=== PATIENT | female | born 1990 | race Caucasian/White ===

== ENCOUNTER → 2016-10-07 | Outpatient (CLI) | payer OTHER ==
--- NOTE | 2016-10-07 15:25 | REP ---
Clinical: Status post trauma (do not bite) with right gluteal swelling. Technique: Real time combs scale and color Doppler evaluation using linear high frequency transducer. Findings: Ultrasound examination of the right groin demonstrates a single prominent lymph node measuring 2.0 x 0.8 x 0.9 cm. Directed ultrasound examination overlying the right gluteal region at the site of swelling demonstrates subcutaneous hypoechoic complex collection measuring 2.9 x 0.5 x 2.4 cm likely representing resolving hematoma. Impression: Suspected resolving hematoma at the site of swelling and previous trauma (dog bite). Follow-up ultrasound may be warranted if physical examination worsens. Signed by Jacob Jimenez MD 10/07/2016 03:17 P
== END ==
LOC: M RAD 14:38
DX: R59.0 Localized enlarged lymph nodes (principal); R22.2 Localized swelling, mass and lump, trunk

== ENCOUNTER → 2016-11-12 | Outpatient (REF) | payer OTHER ==
[2016-11-12 23:44] LABS: MICROSCOPIC INDICATED? MAN YES (NO)
[2016-11-13 00:04] LABS: MICROSCOPIC EXAM PERFORMED
[2016-11-13 00:05] LABS: HYALINE CAST, URINE NONE SEEN /lpf (0-1); RBC, URINE TNTC /hpf (0-3); SQUAMOUS EPITHELIAL CELL URINE SMALL AMOUNT /hpf (SMALL AMT)
[2016-11-13 00:06] LABS: BACTERIA, URINE MOD AMOUNT
== END ==
LOC: M LAB REF 15:06
PROVIDERS: ATTEND Physician Assistant
DX: R30.0 Dysuria (principal)

== ENCOUNTER → 2017-06-02 | Outpatient (CLI) | payer OTHER ==
[2017-06-02 13:33] LABS: BASO % 0.1 % (0.0-1.0); EOS # 0.1 10^3/uL (0.0-0.50); EOS % 0.7 % (0.0-3.0); HEMOGLOBIN 12.7 g/dl (12.0-16.0); IMMATURE GRANULOCYTE % 0.3 % (0-3.0); LYMPH # 1.3 10^3/uL (1.5-6.5); LYMPH % 17.3 % (24.0-44.0); MEAN CORPUSCULAR HEMOGLOBIN 30.1 pg (27.0-33.0); MEAN CORPUSCULAR HGB CONC 34.3 g/dl (32.0-36.5); MEAN CORPUSCULAR VOLUME 87.7 fl (80.0-96.0); MONO # 0.3 10^3/uL (0.0-0.8); MONO % 4.3 % (0.0-5.0); NEUTROPHILS # 5.7 10^3/uL (1.8-7.7); NEUTROPHILS % 77.3 % (36.0-66.0); PLATELET COUNT, AUTOMATED 243 10^3/uL (150-450); RED BLOOD COUNT 4.22 10^6/uL (4.00-5.40); RED CELL DISTRIBUTION WIDTH 12.1 % (11.5-14.5); WHITE BLOOD COUNT 7.4 10^3/uL (4.0-10.0)
[2017-06-02 13:57] LABS: RUBELLA IgG QUALITATIVE IMMUNE (IMMUNE)
[2017-06-02 13:58] LABS: HBsAg Prenatal NEGATIVE (NEGATIVE)
[2017-06-02 14:26] LABS: HEPATITIS C VIRUS ABY INDEX 0.1 INDEX (<0.8)
[2017-06-02 14:27] LABS: HIV 1&2 SCREEN CENTAUR NEGATIVE (NEGATIVE)
[2017-06-02 15:03] LABS: CHLAMYDIA DNA AMPLIFICATION NEGATIVE (NEGATIVE); GC DNA AMPLIFICATION NEGATIVE (NEGATIVE)
== END ==
LOC: M SMT 09:21
DX: Z34.81 Encounter for supervision of other normal pregnancy, first trimester (principal); Z3A.12 12 weeks gestation of pregnancy

== ENCOUNTER → 2017-07-03 | Outpatient (CLI) | payer OTHER | LOC: M SMT 10:09 | DX: Z36.89 Encounter for other specified antenatal screening (principal) | CPT/HCPCS: 36415 ==

== ENCOUNTER → 2017-07-17 | Outpatient (CLI) | payer OTHER | LOC: M RAD 09:13 | DX: Z34.82 Encounter for supervision of other normal pregnancy, second trimester (principal); Z36.89 Encounter for other specified antenatal screening; Z3A.18 18 weeks gestation of pregnancy | CPT/HCPCS: 76811 ==

== ENCOUNTER → 2017-08-14 | Outpatient (CLI) | payer OTHER | LOC: M RAD 08:26 | DX: Z36.9 Encounter for antenatal screening, unspecified (principal); Z3A.21 21 weeks gestation of pregnancy | CPT/HCPCS: 76816 ==

== ENCOUNTER → 2017-09-24 | Outpatient (CLI) | payer OTHER | LOC: M SMT 09:34 | DX: Z36.2 Encounter for other antenatal screening follow-up (principal); Z3A.28 28 weeks gestation of pregnancy | CPT/HCPCS: 76816 ==

== ENCOUNTER → 2017-10-27 | Outpatient (CLI) | payer OTHER ==
[2017-10-27 13:21] LABS: BASO % 0.2 % (0.0-1.0); EOS % 0.3 % (0.0-3.0); HEMOGLOBIN 11.5 g/dl (12.0-15.5); LYMPH # 1.6 10^3/uL (1.5-6.5); LYMPH % 13.6 % (24.0-44.0); MEAN CORPUSCULAR HEMOGLOBIN 30.6 pg (27.0-33.0); MEAN CORPUSCULAR HGB CONC 33.8 g/dl (32.0-36.5); MEAN CORPUSCULAR VOLUME 90.4 fl (80.0-96.0); MONO # 0.4 10^3/uL (0.0-0.8); MONO % 3.7 % (0.0-5.0); NEUTROPHILS # 9.4 10^3/uL (1.8-7.7); NEUTROPHILS % 81.2 % (36.0-66.0); PLATELET COUNT, AUTOMATED 250 10^3/uL (150-450); RED BLOOD COUNT 3.76 10^6/uL (4.00-5.40); RED CELL DISTRIBUTION WIDTH 13.2 % (11.5-14.5); WHITE BLOOD COUNT 11.6 10^3/uL (4.0-10.0)
[2017-10-27 13:39] LABS: GLUCOSE CHALLENGE TEST 1 HOUR 105 MG/DL (LESS THAN 140)
== END ==
LOC: M SMT 09:49
DX: Z36.89 Encounter for other specified antenatal screening (principal); Z3A.00 Weeks of gestation of pregnancy not specified
CPT/HCPCS: 82950

== ENCOUNTER → 2017-11-17 | Outpatient (REF) | payer OTHER | LOC: M LAB REF 11-18 17:17 | DX: Z36.85 Encounter for antenatal screening for Streptococcus B (principal); Z3A.00 Weeks of gestation of pregnancy not specified | CPT/HCPCS: 87081 ==

== ENCOUNTER 2017-12-23 15:19 | Inpatient (IN) | payer OTHER ==
[2017-12-23 17:07] LABS: HEMATOCRIT 31.8 % (36.0-47.0); HEMOGLOBIN 10.6 g/dl (12.0-15.5); MEAN CORPUSCULAR HEMOGLOBIN 29.4 pg (27.0-33.0); MEAN CORPUSCULAR HGB CONC 33.3 g/dl (32.0-36.5); MEAN CORPUSCULAR VOLUME 88.3 fl (80.0-96.0); PLATELET COUNT, AUTOMATED 219 10^3/uL (150-450); RED CELL DISTRIBUTION WIDTH 13.6 % (11.5-14.5); WHITE BLOOD COUNT 11.1 10^3/uL (4.0-10.0)
[2017-12-23] MEDS: miSOPROStol 50 MCG 1/2 TAB (S0191) SL ×2 (17:25→21:34)
[2017-12-24] MEDS: OXYTOCIN DRIP 30 UNITS in APPROPRIATE DILUENT 1 EA IV ×2 (02:13→14:15)
[2017-12-24] MEDS ORDERED: FENTANYL 2MCG/ML ROPIVACAINE 0.2% IN 0.9% NACL 200ML IVBAG As Ordered (04:50)
[2017-12-24] MEDS ORDERED: REFRIGERATOR IV KEYS XX (06:30)
[2017-12-24] MEDS ORDERED: NALOXONE INJ 0.4 MG/1 ML VIAL (J2310) IV (06:30)
[2017-12-24] MEDS ORDERED: diphenhydrAMINE INJ 50MG/ML VIAL (J1200) IV (06:30)
[2017-12-24] MEDS ORDERED: EPIDURAL/PCA KEYS XX (06:30)
[2017-12-24] MEDS ORDERED: ONDANSETRON 4MG/2ML VIAL (J2405) IV ×2 (06:30→14:15)
[2017-12-24] MEDS ORDERED: EPIDURAL COMMENT XX (06:30)
[2017-12-24] MEDS ORDERED: FENTANYL/ROPIVACAINE/NACL BAG 200 ML EPIDURAL (06:30)
[2017-12-24] MEDS: LACTATED RINGER'S 1000 ML IV (09:05)
[2017-12-24] MEDS: ePHEDrine SULFATE 25 MG/5 ML(5MG/ML) SYRINGE IV ×3 (09:25→09:34)
[2017-12-24] MEDS ORDERED: METHYLERGONOVINE MALEATE 0.2 MG TAB PO (14:15)
[2017-12-24] MEDS ORDERED: ACETAMINOPHEN 500 MG TAB PO (14:15)
[2017-12-24] MEDS: IBUPROFEN 800 MG TAB PO ×2 (15:56→23:41)
[2017-12-24] MEDS: DIBUCAINE 1% OINTMENT 30GM TOP (18:53)
[2017-12-25] MEDS: MEASLES,MUMPS,RUBELLA VACCINE INJ (MMR-II) (90707) SC (07:21)
[2017-12-25] MEDS: RHOGAM 300 MCG (1500 IU) INJ (J2790) IM (07:21)
[2017-12-25] MEDS: PRENATAL VITAMINS CHEWABLE TABLET PO ×2 (09:00→09:03)
[2017-12-25] MEDS: IBUPROFEN 800 MG TAB PO ×2 (09:04→19:37)
[2017-12-25] MEDS: INFLUENZA QUADRIVALENT PF VACCINE 0.5ML SYRINGE (90686) IM (09:05)
[2017-12-25] MEDS: DOCUSATE SODIUM 100 MG CAP PO ×2 (09:29→19:35)
[2017-12-25] MEDS: SIMETHICONE 80 MG CHEW TAB PO (14:07)
[2017-12-25 14:34] LABS: BASO % 0.1 % (0.0-1.0); EOS # 0.1 10^3/uL (0.0-0.50); EOS % 0.5 % (0.0-3.0); HEMATOCRIT 30.7 % (36.0-47.0); HEMOGLOBIN 10.2 g/dl (12.0-15.5); IMMATURE GRANULOCYTE % 0.9 % (0-3.0); LYMPH # 2.1 10^3/uL (1.5-6.5); LYMPH % 15.2 % (24.0-44.0); MEAN CORPUSCULAR HEMOGLOBIN 29.6 pg (27.0-33.0); MEAN CORPUSCULAR HGB CONC 33.2 g/dl (32.0-36.5); MONO # 0.5 10^3/uL (0.0-0.8); MONO % 3.7 % (0.0-5.0); NEUTROPHILS # 10.8 10^3/uL (1.8-7.7); NEUTROPHILS % 79.6 % (36.0-66.0); PLATELET COUNT, AUTOMATED 240 10^3/uL (150-450); RED BLOOD COUNT 3.45 10^6/uL (4.00-5.40); RED CELL DISTRIBUTION WIDTH 14.2 % (11.5-14.5); WHITE BLOOD COUNT 13.6 10^3/uL (4.0-10.0)
[2017-12-26] MEDS: DOCUSATE SODIUM 100 MG CAP PO (08:32)
[2017-12-26] MEDS: PRENATAL VITAMINS CHEWABLE TABLET PO (08:33)
== END 2017-12-26 09:30 | disposition home or self-care (01) | DRG 560 ==
LOC: M LDI 15:19 → M OBS 12-24 16:16
PROVIDERS: Obstetrics & Gynecology
PROC: 3E0DXGC Introduction of Other Therapeutic Substance into Mouth and Pharynx, External Approach (ICD-10-PCS; 2017-12-23)
PROC: 10E0XZZ Delivery of Products of Conception, External Approach (ICD-10-PCS; principal; 2017-12-24)
PROC: 0KQM0ZZ Repair Perineum Muscle, Open Approach (ICD-10-PCS; 2017-12-24)
DX: O48.0 Post-term pregnancy (principal); O70.1 Second degree perineal laceration during delivery; Z37.0 Single live birth; Z3A.41 41 weeks gestation of pregnancy

== ENCOUNTER → 2018-08-06 | Outpatient (CLI) | payer OTHER ==
[~2018-08-06] MED LIST: ACET1TAB55 PO; MOTR200T44 PO; PRENTAB55 PO; PRIL20TA2 PO; TYLE500T78 PO
--- NOTE | 2018-08-06 12:28 | REP ---
LUMBAR SPINE, SEVEN VIEWS: HISTORY: Back pain. There is no acute fracture. The L4-5 intervertebral disc is decreased in height consistent with disc degeneration. Osteophytes are present on T12 and L1. The facet joints are normal in appearance. There are 3 mm of retrolisthesis of L5 on S1. This is unchanged with flexion and extension. IMPRESSION: Degenerative change, as described above. Electronically Signed by Abe Thompson MD 08/06/2018 12:30 P
--- NOTE | 2018-08-06 12:37 | REP ---
Pelvis: Two views. History: Pain. Findings: Two AP views of the pelvis are presented. Bony pelvic ring is intact. No bony erosive or destructive lesion is seen. SI joints and symphysis pubis are intact. Hip joint spaces are preserved. Femoral heads are smooth and rounded. Impression: Negative AP views of the pelvis. Electronically Signed by Bret Bob MD 08/06/2018 12:39 P
[2018-08-06 13:48] LABS: BASO % 0.1 % (0.0-1.0); EOS % 0.4 % (0.0-3.0); HEMATOCRIT 40.7 % (36.0-47.0); HEMOGLOBIN 13.3 g/dl (12.0-15.5); LYMPH # 1.6 10^3/uL (1.5-4.5); LYMPH % 16.6 % (24.0-44.0); MEAN CORPUSCULAR HEMOGLOBIN 28.2 pg (27.0-33.0); MEAN CORPUSCULAR HGB CONC 32.7 g/dl (32.0-36.5); MEAN CORPUSCULAR VOLUME 86.2 fl (80.0-96.0); MONO # 0.5 10^3/uL (0.0-0.8); MONO % 5.2 % (0.0-5.0); NEUTROPHILS # 7.2 10^3/uL (1.8-7.7); NEUTROPHILS % 77.4 % (36.0-66.0); PLATELET COUNT, AUTOMATED 278 10^3/uL (150-450); RED BLOOD COUNT 4.72 10^6/uL (4.00-5.40); WHITE BLOOD COUNT 9.4 10^3/uL (4.0-10.0)
[2018-08-06 14:20] LABS: HEMOGLOBIN A1c 5.7 %
[2018-08-06 14:22] LABS: ALBUMIN 3.4 GM/DL (3.2-5.2); ALT/SGPT 21 U/L (12-78); BILIRUBIN,TOTAL 0.2 MG/DL (0.2-1.0); BLOOD UREA NITROGEN 18 MG/DL (7-18); CALCIUM LEVEL 8.3 MG/DL (8.5-10.1); CARBON DIOXIDE LEVEL 29 MEQ/L (21-32); CHLORIDE LEVEL 108 MEQ/L (98-107); CHOLESTEROL LEVEL 148 MG/DL (<200); CHOLESTEROL RISK RATIO 2.846 (<5); CREATININE FOR GFR 0.61 MG/DL (0.55-1.30); FREE T4 1.32 NG/DL (0.76-1.46); GLOMERULAR FILTRATION RATE > 60.0 (>60); GLUCOSE, FASTING 68 MG/DL (70-100); HDL CHOLESTEROL 52 MG/DL (>40); LDL CHOLESTEROL 69.2 MG/DL (<100); NON-HDL-C 96 MG/DL; POTASSIUM SERUM 4.3 MEQ/L (3.5-5.1); SODIUM LEVEL 142 MEQ/L (136-145); THYROID STIMULATING HORMONE 0.068 uIU/ML (0.358-3.740); TOTAL PROTEIN 6.9 GM/DL (6.4-8.2); TRIGLYCERIDES LEVEL 134 MG/DL (<150)
== END ==
LOC: M SMT 11:45
PROVIDERS: ATTEND Physician Assistant
DX: Z13.29 Encounter for screening for other suspected endocrine disorder (principal); M51.36 Other intervertebral disc degeneration, lumbar region; M25.78 Osteophyte, vertebrae

== ENCOUNTER → 2018-08-10 | Outpatient (REF) | payer OTHER | LOC: M LAB REF 17:21 | PROVIDERS: ATTEND Specialist | DX: Z12.4 Encounter for screening for malignant neoplasm of cervix (principal) ==

== ENCOUNTER 2018-09-10 10:06 | Day surgery (SDC) | payer OTHER ==
[~2018-09-10] VITALS: Ht 170.2 cm; Wt 105.2 kg
[~2018-09-10 10:06] MED LIST changes: +CYMB1CAP4 PO; +NAPR-885
[2018-09-10] MEDS ORDERED: NS 1,000 ML IV SCH (10:30)
[2018-09-10] MEDS ORDERED: PROPOFOL 200 MG/20 ML VIAL As Ordered ONE ×2 (10:53→11:10)
[2018-09-10] MEDS ORDERED: LIDOCAINE 2% INJ 100 MG/5 ML SDV (FOR ANES.) As Ordered ONE (10:53)
--- NOTE | 2018-09-10 11:04 | ROOR ---
Patient Name: Jose Burnett Procedure Date: 09/10/2018 10:51 AM Date of : 1990 Age: 28 Room: [facility] Gender: Female Note Status: Finalized Procedure: Upper GI endoscopy Indications: Heartburn Providers: Lucio Barragan Jr, MD Referring MD: Lashanda HESS DO Requesting Provider: Medicines: Propofol per Anesthesia Complications: No immediate complications. Procedure: Pre-Anesthesia Assessment: - Prior to the procedure, a History and Physical was performed, and patient medications and allergies were reviewed. The patient is competent. The risks and benefits of the procedure and the sedation options and risks were discussed with the patient. All questions were answered and informed consent was obtained. Patient identification and proposed procedure were verified by the physician and the nurse in the pre-procedure area and in the procedure room. Mental Status Examination: alert and oriented. Airway Examination: normal oropharyngeal airway and neck mobility. Respiratory Examination: clear to auscultation. CV Examination: normal. ASA Grade Assessment: II - A patient with mild systemic disease. After reviewing the risks and benefits, the patient was deemed in satisfactory condition to undergo the procedure. The anesthesia plan was to use moderate sedation / analgesia (conscious sedation). Immediately prior to administration of medications, the patient was re-assessed for adequacy to receive sedatives. The heart rate, respiratory rate, oxygen saturations, blood pressure, adequacy of pulmonary ventilation, and response to care were monitored throughout the procedure. The physical status of the patient was re-assessed after the procedure. The Endoscope was introduced through the mouth, and advanced to the second part of duodenum. The upper GI endoscopy was accomplished without difficulty. The patient tolerated the procedure well. Findings: The upper third of the esophagus, middle third of the esophagus and lower third of the esophagus were normal. LA Grade A (one or more mucosal breaks less than 5 mm, not extending between tops of 2 mucosal folds) esophagitis was found at the gastroesophageal junction. Biopsies were taken with a cold forceps for histology. The cardia, gastric fundus, gastric body, gastric antrum, prepyloric region of the stomach and pylorus were normal. The duodenal bulb, first portion of the duodenum and second portion of the duodenum were normal. Impression: - Normal upper third of esophagus, middle third of esophagus and lower third of esophagus. - LA Grade A reflux esophagitis. Biopsied. - Normal cardia, gastric fundus, gastric body, antrum, prepyloric region of the stomach and pylorus. - Normal duodenal bulb, first portion of the duodenum and second portion of the duodenum. Recommendation: - Discharge patient to home (ambulatory). - Return to my office in 2 weeks. Lucio Barragan MD Lucio Barragan Jr, MD 09/10/2018 11:04:19 AM Electronically signed by Lucio Barragan Jr, MD Number of Addenda: 0 Note Initiated On: 09/10/2018 10:51 AM Estimated Blood Loss: Estimated blood loss: none.
--- NOTE | 2018-09-10 11:13 | ROOR ---
Patient Name: Jose Burnett Procedure Date: 09/10/2018 10:52 AM Date of : 1990 Age: 28 Room: [facility] Gender: Female Note Status: Finalized Procedure: Colonoscopy Indications: Screening in patient at increased risk: Family history of 1st-degree relative with colorectal cancer before age 60 years Providers: Lucio Barragan Jr, MD Referring MD: Lashanda HESS DO Requesting Provider: Medicines: Propofol per Anesthesia Complications: No immediate complications. Procedure: Pre-Anesthesia Assessment: - Prior to the procedure, a History and Physical was performed, and patient medications and allergies were reviewed. The patient is competent. The risks and benefits of the procedure and the sedation options and risks were discussed with the patient. All questions were answered and informed consent was obtained. Patient identification and proposed procedure were verified by the physician and the nurse in the pre-procedure area and in the procedure room. Mental Status Examination: alert and oriented. Airway Examination: normal oropharyngeal airway and neck mobility. Respiratory Examination: clear to auscultation. CV Examination: normal. ASA Grade Assessment: II - A patient with mild systemic disease. After reviewing the risks and benefits, the patient was deemed in satisfactory condition to undergo the procedure. The anesthesia plan was to use moderate sedation / analgesia (conscious sedation). Immediately prior to administration of medications, the patient was re-assessed for adequacy to receive sedatives. The heart rate, respiratory rate, oxygen saturations, blood pressure, adequacy of pulmonary ventilation, and response to care were monitored throughout the procedure. The physical status of the patient was re-assessed after the procedure. The Colonoscope was introduced through the anus and advanced to the cecum, identified by appendiceal orifice and ileocecal valve. The quality of the bowel preparation was adequate. Findings: The rectum, recto-sigmoid colon, descending colon, transverse colon, ascending colon, cecum, appendiceal orifice and ileocecal valve appeared normal. A few small-mouthed diverticula were found in the sigmoid colon. Impression: - The rectum, recto-sigmoid colon, descending colon, transverse colon, ascending colon, cecum, appendiceal orifice and ileocecal valve are normal. - Diverticulosis in the sigmoid colon. - No specimens collected. Recommendation: - Discharge patient to home (ambulatory). - Repeat colonoscopy in 5 years for screening purposes. Lucio Barragan MD Lucio Barragan Jr, MD 09/10/2018 11:13:05 AM Electronically signed by Lucio Barragan Jr, MD Number of Addenda: 0 Note Initiated On: 09/10/2018 10:52 AM Estimated Blood Loss: Estimated blood loss: none.
[2018-09-10 11:35] VITALS: BP 140/91
== END 2018-09-10 11:52 | disposition home or self-care (01) ==
LOC: M OPP 10:06
PROVIDERS: ATTEND Surgery
DX: K57.30 Diverticulosis of large intestine without perforation or abscess without bleeding (principal); K21.0 Gastro-esophageal reflux disease with esophagitis; R12 Heartburn; Z12.11 Encounter for screening for malignant neoplasm of colon; Z80.0 Family history of malignant neoplasm of digestive organs

== ENCOUNTER → 2019-08-25 | Outpatient (CLI) | payer BC ==
--- NOTE | 2019-08-25 17:52 | REP ---
OBSTETRIC SONOGRAPHY: HISTORY: Obesity complicating in second trimester. Supervision of . For anatomy. FINDINGS: Scanning through the gravid uterus demonstrates a single living intrauterine gestation in a transverse lie, head to the maternal left. motion is observed, and heart rate is recorded at 143 beats per minute. An anterior grade 0 placenta is seen without evidence of previa or abruption. Amniotic fluid is subjectively normal. Closed cervical length measures 3.8 cm, viewed transabdominally. No extrauterine abnormalities observed. Exam quality was inhibited by maternal body habitus. No anomaly is seen. The following anatomic structures are identified and felt to be unremarkable: cranium, choroid plexus, cavum, cerebellum and posterior fossa, nuchal fold, face and profile, four-chamber heart with left and right ventricular outflow tract views, diaphragm, left-sided stomach, abdominal wall cord insertion, three-vessel cord, kidneys and bladder, spine, upper and lower extremities. BIOMETRY CHART: BPD 4.2 cm = 18 weeks 5 days Head circumference 17.1 cm = 19 weeks 5 days Abdominal circumference 16.6 cm = 21 weeks 5 days Femur length 3.2 cm = 19 weeks 6 days Humeral length 3.2 cm = 20 weeks 4 days HC/AC ratio 1.03 (1.06-1.25), cephalic index 0.65 (0.70-0.86), estimated weight 368 grams, 0 pounds 12 ounces, 81st percentile for 19 weeks 5 days. IMPRESSION: Viable single intrauterine gestation at 19 weeks 5 days by today's composite sonographic criteria. LUNA by today's sonography January 14, 2020.
== END ==
LOC: MERGE 08:08 → M WHC 08:08
PROVIDERS: ATTEND Advanced Practice Midwife
DX: O99.212 Obesity complicating pregnancy, second trimester (principal); Z3A.19 19 weeks gestation of pregnancy

== ENCOUNTER → 2019-12-08 | Outpatient (REF) | payer BC, OTHER ==
[~2019-12-08] MED LIST changes: +IBUP80TA PO; +PRE NATAL VITAMIN PO
== END ==
LOC: M LAB REF 15:12
PROVIDERS: ATTEND Advanced Practice Midwife
DX: Z34.83 Encounter for supervision of other normal pregnancy, third trimester (principal); Z3A.00 Weeks of gestation of pregnancy not specified

== ENCOUNTER → 2019-12-16 | Outpatient (REF) | payer BC ==
[~2019-12-16] MED LIST changes: +FLOM0.4C39 PO; +KETO10TAB PO; +ONDA4TAB6 PO
== END ==
LOC: M LAB REF 16:51 → MERGE 16:51
PROVIDERS: ATTEND Advanced Practice Midwife
DX: Z34.83 Encounter for supervision of other normal pregnancy, third trimester (principal); Z3A.00 Weeks of gestation of pregnancy not specified

== ENCOUNTER 2019-12-20 03:46 | Emergency (ER) | payer BC ==
[~2019-12-20] VITALS: Ht 170.2 cm; Wt 115.5 kg
[~2019-12-20 03:46] MED LIST changes: -FLOM0.4C39 PO; -IBUP80TA PO; -KETO10TAB PO; -ONDA4TAB6 PO; -PRE NATAL VITAMIN PO
[2019-12-20] MEDS ORDERED: PRE NATAL VITAMIN PO (04:00)
[2019-12-20] MEDS ORDERED: ACET1TAB55 PO (04:00)
[2019-12-20] MEDS ORDERED: PRIL20TA2 PO (04:00)
[2019-12-20 04:20] VITALS: BP 111/58
--- NOTE | 2019-12-20 05:42 | REPVR ---
PROCEDURE INFORMATION: Exam: US Pelvis Limited, Transabdominal Exam date and time: 12/20/2019 5:31 AM Age: 29 years old Clinical indication: Pain; Other: RT groin; Additional info: Eval for R ing. Hernia TECHNIQUE: Imaging protocol: Real-time transabdominal pelvic ultrasound with image documentation. Limited exam. COMPARISON: No relevant prior studies available. FINDINGS: Free fluid: No fluid collection. Soft tissues: No evidence of inguinal hernia is seen. No bowel herniation into the inguinal canal. IMPRESSION: No fluid collection. No evidence of inguinal hernia is seen. No bowel herniation into the inguinal canal. Electronically signed by: Berta Tinoco On 12/20/2019 05:42:19 AM
[2019-12-20] MEDS ORDERED: ACETAMINOPHEN 500 MG TAB PO ONE (05:45)
== END 2019-12-20 06:02 | disposition home or self-care (01) ==
LOC: M ED 03:46 → MERGE 03:46 → M ED 06:02
DX: O9A.213 Injury, poisoning and certain other consequences of external causes complicating pregnancy, third trimester (principal); S76.011A Strain of muscle, fascia and tendon of right hip, initial encounter; X50.0XXA Overexertion from strenuous movement or load, initial encounter; Z87.891 Personal history of nicotine dependence; Z3A.37 37 weeks gestation of pregnancy; Y92.9 Unspecified place or not applicable; Y93.9 Activity, unspecified; Y99.9 Unspecified external cause status

== ENCOUNTER 2020-01-09 09:57 | Inpatient (IN) | payer BC ==
[2020-01-09] VITALS (23 sets, daily range): BP systolic 97–190; BP diastolic 49–106
[~2020-01-09] VITALS: Ht 170.2 cm; Wt 119.0 kg
[~2020-01-09 09:57] MED LIST changes: +PRE NATAL VITAMIN PO
[2020-01-09] MEDS ORDERED: LACTATED RINGER'S 1000 ML IV STA (10:25)
[2020-01-09] MEDS ORDERED: LR 1,000 ML IV SCH (10:25)
[2020-01-09] MEDS ORDERED: miSOPROStol 25 MCG 1/4 TAB (S0191) PV ONE (11:00)
[2020-01-09] MEDS ORDERED: BUTORPHANOL 2 MG/ML INJ (J0595) IV PRN (11:00)
[2020-01-09] MEDS ORDERED: PROMETHAZINE INJ 25 MG/ML VIAL (J2550) IV PRN (11:00)
[2020-01-09] MEDS ORDERED: miSOPROStol 25 MCG 1/4 TAB (S0191) As Ordered ONE (11:07)
[2020-01-09 11:13] LABS: HEMATOCRIT 35.9 % (36.0-47.0); HEMOGLOBIN 11.5 g/dl (12.0-15.5); MEAN CORPUSCULAR HEMOGLOBIN 28.3 pg (27.0-33.0); MEAN CORPUSCULAR VOLUME 88.4 fl (80.0-96.0); PLATELET COUNT, AUTOMATED 233 10^3/uL (150-450); RED BLOOD COUNT 4.06 10^6/uL (4.00-5.40); WHITE BLOOD COUNT 9.6 10^3/uL (4.0-10.0)
--- NOTE | 2020-01-09 11:37 | HPEPDOC ---
Obstetrical History & Physical General Date of Admission Jan 09, 2020 at 09:57 History of Present Illness Jose is a 29yo with SIUP at 40w0d by lmp c/w early u/s presenting for elective IOL. She has been having more hip/groin pain recently. Good FM, no LOF/vaginal bleeding or regular ctx. 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 Mother from colon cancer (dx age 38) and patient is UTD on colonoscopy, last was done 2018 Surgical History: Other (colonoscopy, hardware in left tibia after fracture) Family History Significant Family History: Cancer (mother, colon, age 38) Social History Marital Status: Family situation: Spouse/partner home Psychosocial History: No pertinent psych hx * Smoker: non-smoker Alcohol: Denies Drugs: denies Allergies Coded Allergies: No Known Allergies (Unverified , 01/09/20) Medications Scheduled Omeprazole Magnesium (Prilosec Otc) 20 Mg Tablet.dr, 20 MG PO DAILY [Pre Vitamin] , 1 TAB PO DAILY Physical Examination Physical Examination GENERAL: Alert and oriented times three. ABDOMEN: Gravid and non-tender to touch, obese FETUS: Is vertex (VTX) by sterile vaginal examination (SVE) EXTREMITIES: No edema BLE Laboratory Data 24H LABS Laboratory Tests 2 01/09/20 10:14: Serology Scanned Report Hepatitis B Testing 01/09/20 10:57: Nucleated Red Blood Cells % (auto) 0.0 CBC/BMP Laboratory Tests 01/09/20 10:57 Pertinent Laboratoy Data Blood Type: A+ RBC Antibody Screen: Negative HIV: Negative Hepatitis B: Negative Hepatitis C: Negative Rapid Plasma Reagin: Nonreactive Rubella: Immune Chlamydia/Gonorrhea: Negative Group B Streptococcus: Negative Glucose Tolerance Test: 76 Anatomy Ultrasound Ultrasound Date: August 25, 2019 Placenta Location: Anterior Normal Anatomy: Yes Placenta Previa: No Steroid Therapy Steroid Therapy: No Vaginal Examination Dilation: 1cm Effacement: 70% Station: -3 Cervical Consistency: Soft Cervical Position: Posterior Presentation: Cephalic presentation Assessment Heart Rate (FHR): 140 Variability: Moderate Accelerations: Positive Decelerations: None Tocometer Contractions: No Assessment/Plan Assessment Jose is a 29yo with SIUP at 40w0d by lmp c/w early u/s presenting for elective IOL. Vitals wnl, benign exam. Cat I FHRT, no ctx. SCE /-3, very posterior. GBS negative. PMhx/PNC significant for: Obesity, GERD, exercise induced asthma. Mother from colon cancer (dx age 38) and patient is UTD on colonoscopy, last was done 2019 Plan Admit and orient. 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 Diet: regular for lunch then clear liquids Group B Streptococcus (GBS) negative Labs and intravenous (IV) per unit protocol. Counseled on cytotec, jones bulb, Pitocin and induction of labor (IOL). Placed 25mcg cytotec PV (unable to place cervical jones bulb on attempt due to very posterior cervix) Lactated Ringers (LR): Bolus 800 mL, then at 125 mL/hr in active labor if epidural desired, otherwise saline lock with PO hydration Anticipate normal spontaneous delivery () MD Libby Ross Katrina D MD Jan 09, 2020 11:37
[2020-01-09] MEDS ORDERED: miSOPROStol 25 MCG 1/4 TAB (S0191) PO SCH (15:00)
--- NOTE | 2020-01-09 17:04 | IPNPDOC ---
Text Note Date of Service The patient was seen on 01/09/20. NOTE Intrapartum Note Pt doing well, feels only slight cramping. Did not receive 2nd dose of scheduled cytotec 2/2 minimal variability of FHRT. She has been eating crackers and hydr ating. Vitals wnl, afebrile SCE: 1-2/75/-2, now mid position. Bennett cervical bulb easily inserted with 40cc NS Currently Cat I FHRT with mod steve +accels -decels, but earlier was Cat II for minimal variability Ctx q2-6min Will plan to re-dose cytotec 25mcg PO now Continue to closely observe Safe to proceed Josefa Souza MD VS,Lily, I+O VSLily I+O Laboratory Tests 01/09/20 10:57 Vital Signs Date Time Temp Pulse Resp B/P (MAP) Pulse Ox O2 Delivery O2 Flow Rate FiO2 01/09/20 12:36 77 125/71 (89) 01/09/20 10:14 96.5 18 Josefa Souza MD Jan 09, 2020 17:04
[2020-01-09] MEDS ORDERED: FENTANYL 2MCG/ML ROPIVACAINE 0.2% IN 0.9% NACL 100ML IVBAG As Ordered ONE (21:46)
[2020-01-09] MEDS ORDERED: FENTANYL/ROPIVACAINE/NACL BAG 100 ML EPIDURAL SCH (22:35)
[2020-01-09] MEDS ORDERED: ePHEDrine SULFATE 25 MG/5 ML(5MG/ML) SYRINGE IV PRN (22:35)
[2020-01-09] MEDS ORDERED: ONDANSETRON 4MG/2ML VIAL IV PRN (22:35)
[2020-01-09] MEDS ORDERED: diphenhydrAMINE 50MG/ML VIAL (J1200) IV PRN (22:35)
[2020-01-09] MEDS ORDERED: EPIDURAL/PCA KEYS XX PRN (22:35)
[2020-01-09] MEDS ORDERED: EPIDURAL COMMENT XX SCH (22:35)
[2020-01-09] MEDS ORDERED: LACTATED RINGER'S 1000 ML IV PRN (22:35)
[2020-01-09] MEDS ORDERED: NALOXONE INJ 0.4MG/1ML VIAL (J2310 PER 1MG) IV PRN (22:35)
[2020-01-09] MEDS ORDERED: REFRIGERATOR IV KEYS XX PRN (22:35)
[2020-01-10] VITALS (15 sets, daily range): BP systolic 94–138; BP diastolic 46–81
[2020-01-10] MEDS ORDERED: OXYTOCIN 30 UNITS IN 0.9% NaCl 500ML IV BAG (J2590) As Ordered ONE (01:35)
[2020-01-10] MEDS ORDERED: OXYTOCIN DRIP 30 UNITS in IV 1 EA IV SCH (02:10)
[2020-01-10] MEDS ORDERED: ACETAMINOPHEN 500 MG TAB PO PRN (02:15)
[2020-01-10] MEDS ORDERED: IBUPROFEN 600MG TAB PO PRN (02:15)
[2020-01-10] MEDS ORDERED: MEASLES,MUMPS,RUBELLA VACCINE INJ (MMR-II) (90707) SC SCH (02:15)
[2020-01-10] MEDS ORDERED: DIBUCAINE 1% OINTMENT 30GM TOP PRN (02:15)
[2020-01-10] MEDS ORDERED: DOCUSATE SODIUM 100MG CAPSULE PO PRN (02:15)
[2020-01-10] MEDS ORDERED: RHOGAM 300 MCG (1500 IU) INJ (J2790) IM SCH (02:15)
[2020-01-10] MEDS ORDERED: ACETAMINOPHEN TAB 650MG DOSE (2X325MG) PO PRN (02:15)
[2020-01-10] MEDS ORDERED: IBUPROFEN 800 MG TAB PO PRN (02:15)
--- NOTE | 2020-01-10 02:19 | DNPDOC ---
[facility] Delivery Note Delivery Note DATE OF DELIVERY: 10 Jan 2020 PREDELIVERY DIAGNOSIS: 40w1d elective IOL POST DELIVERY DIAGNOSIS: Delivered. 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 Josefa Souza MD ANESTHESIA: epidural ESTIMATED BLOOD LOSS: 250 mL. FINDINGS: 7 pound 0 ounce (3180g) female infant, Score 9/9 DELIVERY SUMMARY: Jose is a 29yo [id number] s/p uncomplicated term at 40w1d after undergoing elective IOL, delivering at 01:44 on 01/10/20. She had induction started with cytotec, then had cervical jones bulb. With another dose of cytotec she progressed on her own, received epidural, and when C/C/0 began pushing. Unknown time of SROM in labor. Excellent pushing efforts, 's head delivered OP, restituted ROP. Left anterior shoulder delivered followed by posterior shoulder and corpus. Infant placed on maternal abdomen and spontaneous cry noted, infant vigorous with apgars 9/9. 's mouth/nose suctioned with bulb suction. After approximately 2 minutes, cord clamped x2 and cut by patient. With fundal massage and traction on the cord, placenta delivered spontaneously and intact with 3 vessel centrally inserted cord. Pitocin IV given per protocol. With bimanual massage, fundus firmed to u-1cm. Inspection of perineum and vagina revealed small 1mll and a few superficial right labial/scotty-urethral abrasions that were reapproximated in routine fashion with 3-0 vicryl suture with excellent cosmesis and hemostasis. All counts correct x2. Mom and were doing well when I left the room. MD Libby Ross Katrina D MD Jan 10, 2020 02:19
[2020-01-10] MEDS: PRENATAL VITAMINS CHEWABLE TABLET PO SCH (07:52)
[2020-01-10] MEDS ORDERED: INFLUENZA QUADRIVALENT PF VACCINE 0.5ML SYRINGE IM ONE (09:00)
[2020-01-11 06:02] VITALS: BP 137/66
[2020-01-11] MEDS ORDERED: IBUP80TA PO (07:22)
[2020-01-11] MEDS: PRENATAL VITAMINS CHEWABLE TABLET PO SCH (08:10)
== END 2020-01-11 18:10 | disposition home or self-care (01) | DRG 560 ==
LOC: MERGE 09:57 → M LDI 09:57 → M OBS 01-10 03:21
PROVIDERS: ADMIT Obstetrics & Gynecology; ATTEND Obstetrics & Gynecology
PROC: 3E0DXGC Introduction of Other Therapeutic Substance into Mouth and Pharynx, External Approach (ICD-10-PCS; 2020-01-09)
PROC: 10E0XZZ Delivery of Products of Conception, External Approach (ICD-10-PCS; principal; 2020-01-10)
PROC: 0HQ9XZZ Repair Perineum Skin, External Approach (ICD-10-PCS; 2020-01-10)
DX: O48.0 Post-term pregnancy (principal); Z37.0 Single live birth; Z3A.40 40 weeks gestation of pregnancy; E66.9 Obesity, unspecified; O99.214 Obesity complicating childbirth; O70.0 First degree perineal laceration during delivery

== ENCOUNTER 2020-02-21 21:42 | Emergency (ER) | payer BC ==
[~2020-02-21] VITALS: Ht 170.2 cm; Wt 112.6 kg
[~2020-02-21 21:42] MED LIST changes: +IBUP80TA PO
[2020-02-21] MEDS ORDERED: KETOROLAC 30 MG/ML 1ML VIAL IV ONE (23:00)
[2020-02-21] MEDS ORDERED: NS 1,000 ML IV ONE (23:00)
[2020-02-21] MEDS ORDERED: ONDANSETRON 4MG/2ML VIAL IV ONE (23:00)
[2020-02-21 23:30] LABS: BASO % 0.1 % (0.0-1.0); EOS % 0.4 % (0.0-3.0); HEMATOCRIT 40.8 % (36.0-47.0); HEMOGLOBIN 12.9 g/dl (12.0-15.5); LYMPH # 0.9 10^3/uL (1.5-5.0); LYMPH % 9.7 % (24.0-44.0); MEAN CORPUSCULAR HEMOGLOBIN 27.8 pg (27.0-33.0); MEAN CORPUSCULAR HGB CONC 31.6 g/dl (32.0-36.5); MEAN CORPUSCULAR VOLUME 87.9 fl (80.0-96.0); MONO # 0.5 10^3/uL (0.0-0.8); MONO % 5.1 % (0.0-5.0); NEUTROPHILS # 7.6 10^3/uL (1.5-8.5); NEUTROPHILS % 84.4 % (36.0-66.0); PLATELET COUNT, AUTOMATED 211 10^3/uL (150-450); RED BLOOD COUNT 4.64 10^6/uL (4.00-5.40)
[2020-02-21 23:54] LABS: ALBUMIN 3.8 GM/DL (3.2-5.2); ALT/SGPT 35 U/L (12-78); BILIRUBIN,DIRECT < 0.1 MG/DL (0.0-0.2); BILIRUBIN,TOTAL 0.3 MG/DL (0.2-1.0); LIPASE 111 U/L (73-393)
--- NOTE | 2020-02-22 00:09 | REPVR ---
PROCEDURE INFORMATION: Exam: CT Abdomen And Pelvis Without Contrast Exam date and time: 02/21/2020 11:35 PM Age: 29 years old Clinical indication: Abdominal pain; Flank; Left; Additional info: Left flank pain TECHNIQUE: Imaging protocol: Computed tomography of the abdomen and pelvis without contrast. Radiation optimization: All CT scans at this facility use at least one of these dose optimization techniques: automated exposure control; mA and/or kV adjustment per patient size (includes targeted exams where dose is matched to clinical indication); or iterative reconstruction. COMPARISON: Pelvis, limited US 12/20/2019 5:18 AM FINDINGS: Lungs: No suspicious mass or airspace process in the visualized lung bases. Liver: Noncontrast liver shows no obvious lesion. Gallbladder and bile ducts: Gallbladder is present and shows no evidence of gallstone. Pancreas: Noncontrast pancreas shows no obvious mass or adjacent fluid. Spleen: Noncontrast spleen shows no obvious focal deformity. Adrenal glands: Adrenal glands are normal in appearance. Kidneys and ureters: Right kidney demonstrates no stone or obstruction. Left kidney demonstrates perinephric stranding and mild hydronephrosis secondary to a left UPJ stone measuring 5 x 3 mm. Distal to this proximal stone, the left ureter is normal in caliber. Stomach and bowel: No evidence of small bowel obstruction. No evidence of acute diverticulitis. Appendix: Normal caliber appendix is identified, with no adjacent inflammation. Intraperitoneal space: No pneumoperitoneum. Vasculature: No aortic aneurysm. Lymph nodes: No enlarged lymph nodes. Urinary bladder: Urinary bladder appears normal. Reproductive: Female reproductive organs appear unremarkable. Bones/joints: Bony structures show no acute fracture or destructive process. Soft tissues: No concerning focal abnormality of the extra-abdominal and pelvic soft tissues. Limitations: Limited evaluation without enteric or IV contrast. IMPRESSION: Mild left hydronephrosis secondary to a 5 x 3 mm proximal left ureter stone at the left UPJ level Electronically signed by: Quincy Staley On 02/22/2020 00:09:13 AM
[2020-02-22] MEDS ORDERED: KETO10TAB PO (00:57)
[2020-02-22] MEDS ORDERED: ONDA4TAB6 PO (00:57)
[2020-02-22] MEDS ORDERED: FLOM0.4C39 PO (00:57)
[2020-02-22 01:04] VITALS: BP 145/88
== END 2020-02-22 01:18 | disposition home or self-care (01) ==
LOC: M ED 21:42
DX: N13.2 Hydronephrosis with renal and ureteral calculous obstruction (principal); R11.0 Nausea; K21.9 Gastro-esophageal reflux disease without esophagitis; Z79.899 Other long term (current) drug therapy
CPT/HCPCS: 74176; 80047; 80076; 81001; 83690; 85025; 87086; 96361; 96374; 96375; 99284; J1885; J2405

== ENCOUNTER 2020-03-24 10:47 | Emergency (ER) | payer BC ==
[~2020-03-24] VITALS: Ht 152.4 cm; Wt 114.2 kg
[~2020-03-24 10:47] MED LIST changes: +FLOM0.4C39 PO; +KETO10TAB PO; +ONDA4TAB6 PO
[2020-03-24] MEDS ORDERED: ACETAMINOPHEN 325 MG TAB PO ONE (11:30)
[2020-03-24] MEDS ORDERED: COMBIVENT RESPIMAT 100-20MCG INHALER 4GM INH SCH (11:30)
--- NOTE | 2020-03-24 11:44 | REP ---
INDICATION: DYSPNEA/COUGH. COMPARISON: No comparison study. TECHNIQUE: Portable upright AP chest radiograph. FINDINGS: The lungs are well inflated and free of infiltrate. Pleural angles are sharp. Heart size is normal. Pulmonary vasculature is not increased. . IMPRESSION: No active disease. <Electronically signed by Curly Bob > 03/24/20 [id number]
[2020-03-24 12:24] LABS: VENOUS BASE EXCESS 1.3 (-2.0-2.0); VENOUS HCO3 28.8 MEQ/L (23.0-27.0); VENOUS O2 SATURATION 66.7 % (60.0-80.0); VENOUS PARTIAL PRESSURE CO2 57.4 mmHg (38.0-50.0); VENOUS PARTIAL PRESSURE O2 38.3 mmHg (30.0-50.0); VENOUS PH 7.318 UNITS (7.330-7.430); VENOUS STANDARD HCO3 24.9 MEQ/L; VENOUS TOTAL CO2 30.5 MEQ/L (24.0-28.0)
[2020-03-24 12:41] LABS: BASO % 0.2 % (0.0-1.0); EOS % 0.9 % (0.0-3.0); HEMATOCRIT 42.1 % (36.0-47.0); HEMOGLOBIN 13.5 g/dl (12.0-15.5); LYMPH # 0.8 10^3/uL (1.5-5.0); LYMPH % 19.6 % (24.0-44.0); MEAN CORPUSCULAR HEMOGLOBIN 28.1 pg (27.0-33.0); MEAN CORPUSCULAR HGB CONC 32.1 g/dl (32.0-36.5); MEAN CORPUSCULAR VOLUME 87.7 fl (80.0-96.0); MONO # 0.3 10^3/uL (0.0-0.8); MONO % 7.7 % (0.0-5.0); NEUTROPHILS # 3.1 10^3/uL (1.5-8.5); NEUTROPHILS % 71.4 % (36.0-66.0); PLATELET COUNT, AUTOMATED 164 10^3/uL (150-450); WHITE BLOOD COUNT 4.3 10^3/uL (4.0-10.0)
[2020-03-24 12:54] LABS: BLOOD UREA NITROGEN 16 MG/DL (7-18); CALCIUM LEVEL 9.1 MG/DL (8.5-10.1); CARBON DIOXIDE LEVEL 29 MEQ/L (21-32); CHLORIDE LEVEL 108 MEQ/L (98-107); CREATININE FOR GFR 0.89 MG/DL (0.55-1.30); GLOMERULAR FILTRATION RATE > 60.0 (>60); GLUCOSE, FASTING 91 MG/DL (70-100); POTASSIUM SERUM 3.6 MEQ/L (3.5-5.1); SODIUM LEVEL 140 MEQ/L (136-145)
[2020-03-24] MEDS ORDERED: COMBAER6 INH (13:17)
[2020-03-24] MEDS ORDERED: PROAAER10 INH (13:17)
[2020-03-24 13:48] VITALS: BP 143/83
== END 2020-03-24 13:50 | disposition home or self-care (01) ==
LOC: M ED 10:47 → EEVIPCON 10:47 → M ED 13:50
DX: U07.1 COVID-19 (principal)

== ENCOUNTER → 2020-07-28 | Outpatient (CLI) | payer BC ==
[~2020-07-28] MED LIST changes: +COMBAER6 INH; +PROAAER10 INH
== END ==
LOC: M LABSMTC 09:56
PROVIDERS: ATTEND Anesthesiology
DX: Z01.812 Encounter for preprocedural laboratory examination (principal); Z20.822 Contact with and (suspected) exposure to COVID-19

== ENCOUNTER → 2020-09-22 | Outpatient (REF) | payer BC ==
[2020-09-22 17:40] LABS: APPEARANCE, URINE CLEAR (CLEAR); BACTERIA, URINE AUTO NEGATIVE (NEGATIVE); BILIRUBIN, URINE AUTO NEGATIVE (NEGATIVE); BLOOD, URINE BLOOD 2+ (NEGATIVE); COLOR, URINE STRAW (YELLOW); GLUCOSE, URINE (UA) AUTO NEGATIVE (NEGATIVE); KETONE, URINE AUTO NEGATIVE (NEGATIVE); LEUKOCYTE ESTERASE, URINE AUTO TRACE (NEGATIVE); NITRITE, URINE AUTO NEGATIVE (NEGATIVE); PROTEIN, URINE AUTO NEGATIVE (NEGATIVE); RBC, URINE AUTO 0 /HPF (0-3); SPECIFIC GRAVITY URINE AUTO 1.003 (1.002-1.035); SQUAMOUS EPITHELIAL CELL UR AU 0 /HPF (0-6); UROBILINOGEN, URINE AUTO 0.2 mg/dL (0.0-2.0); WBC, URINE AUTO 3 /HPF (0-3)
== END ==
LOC: M LAB REF 16:10
PROVIDERS: ATTEND Physician Assistant
DX: N39.0 Urinary tract infection, site not specified (principal)

== ENCOUNTER → 2020-10-23 | Outpatient (REF) | payer BC | LOC: M PLALAB 16:07 | PROVIDERS: ATTEND Obstetrics & Gynecology | DX: N39.0 Urinary tract infection, site not specified (principal); B96.89 Other specified bacterial agents as the cause of diseases classified elsewhere ==

== ENCOUNTER → 2020-10-30 | Outpatient (REF) | LOC: M LAB 12:51 | PROVIDERS: ATTEND Nurse Practitioner Adult Health | DX: Z02.89 Encounter for other administrative examinations (principal) ==

== ENCOUNTER → 2020-12-04 | Outpatient (REF) | LOC: M LABSMTC 10:26 | PROVIDERS: ATTEND Pediatrics | DX: Z20.822 Contact with and (suspected) exposure to COVID-19 (principal) ==

== ENCOUNTER 2020-12-23 22:07 | Emergency (ER) | payer BC ==
[~2020-12-23] VITALS: Ht 170.2 cm; Wt 107.6 kg
[2020-12-23] MEDS ORDERED: DOXY100T PO (22:15)
[2020-12-23] MEDS ORDERED: NS 1,000 ML IV ONE (23:05)
[2020-12-23] MEDS ORDERED: ONDANSETRON 4MG/2ML VIAL IV ONE (23:05)
[2020-12-23 23:09] LABS: BASO % 0.3 % (0.0-1.0); EOS # 0.1 10^3/uL (0.0-0.5); EOS % 0.6 % (0.0-3.0); HEMATOCRIT 39.4 % (36.0-47.0); HEMOGLOBIN 13.2 g/dl (12.0-15.5); LYMPH # 2.4 10^3/uL (1.5-5.0); LYMPH % 26.7 % (24.0-44.0); MEAN CORPUSCULAR HGB CONC 33.5 g/dl (32.0-36.5); MEAN CORPUSCULAR VOLUME 86.6 fl (80.0-96.0); MONO # 0.5 10^3/uL (0.0-0.8); MONO % 5.9 % (2.0-8.0); NEUTROPHILS % 66.2 % (36.0-66.0); PLATELET COUNT, AUTOMATED 222 10^3/uL (150-450); RED BLOOD COUNT 4.55 10^6/uL (4.00-5.40)
--- NOTE | 2020-12-24 00:49 | REPVR ---
PROCEDURE INFORMATION: Exam: CT Abdomen And Pelvis Without Contrast Exam date and time: 12/23/2020 11:37 PM Age: 30 years old Clinical indication: Abdominal pain; Flank; Left; Additional info: L flank pain HX stones TECHNIQUE: Imaging protocol: Computed tomography of the abdomen and pelvis without contrast. Radiation optimization: All CT scans at this facility use at least one of these dose optimization techniques: automated exposure control; mA and/or kV adjustment per patient size (includes targeted exams where dose is matched to clinical indication); or iterative reconstruction. COMPARISON: CT ABD PELVIS W/O CONTRAST 02/21/2020 11:30 PM FINDINGS: Lungs: Minimal bilateral lower lobe fibro-atelectatic change. Liver: Normal. No mass. Gallbladder and bile ducts: Normal. No calcified stones. No ductal dilation. Pancreas: Normal. No ductal dilation. Spleen: Normal. No splenomegaly. Adrenal glands: Normal. No mass. Kidneys and ureters: Left perinephric edema with mild left hydronephrosis and hydroureter which extends to a large distal ureteral calculus at approximately the level of the sciatic notch measuring 5 x 8 x 8 mm. Stomach and bowel: Unremarkable. No obstruction. No mucosal thickening. Appendix: A normal appendix is seen. Intraperitoneal space: Unremarkable. No free air. No significant fluid collection. Vasculature: Duplication of the IVC. Lymph nodes: Unremarkable. No enlarged lymph nodes. Urinary bladder: Unremarkable as visualized. Reproductive: Unremarkable as visualized. Bones/joints: Unremarkable. No acute fracture. Soft tissues: Unremarkable. IMPRESSION: 1. Large distal left ureteral calculus at approximately the level of the sciatic notch measuring 5 x 8 x 8 mm with obstructive uropathy of the left upper tract. There has been migration from the left UPJ since 02/21/2020. 2. Duplication of the IVC. Electronically signed by: Norm Schaefer On 12/24/2020 00:48:58 AM
[2020-12-24] MEDS ORDERED: KETOROLAC 30 MG/ML 1ML VIAL IV ONE (00:55)
[2020-12-24] MEDS ORDERED: KETO10TAB PO (02:18)
[2020-12-24] MEDS ORDERED: FLOM0.4C39 PO (02:18)
[2020-12-24 02:46] VITALS: BP 146/91
== END 2020-12-24 02:47 | disposition home or self-care (01) ==
LOC: M ED 22:07
DX: N20.1 Calculus of ureter (principal); R31.9 Hematuria, unspecified
CPT/HCPCS: 74176; 80047; 81001; 84702; 85025; 96361; 96374; 96375; 99284; J1885; J2405

== ENCOUNTER → 2020-12-27 | Outpatient (CLI) | payer BC ==
[~2020-12-27] MED LIST changes: +DOXY100T PO
== END ==
LOC: M LABSMTC 09:43
PROVIDERS: ATTEND Anesthesiology
DX: Z20.828 Contact with and (suspected) exposure to other viral communicable diseases (principal); Z11.59 Encounter for screening for other viral diseases

== ENCOUNTER → 2020-12-29 | Outpatient (CLI) | payer BC ==
[2020-12-29 17:36] LABS: APPEARANCE, URINE CLEAR (CLEAR); BILIRUBIN, URINE AUTO NEGATIVE (NEGATIVE); BLOOD, URINE BLOOD 1+ (NEGATIVE); COLOR, URINE COLORLESS (YELLOW); GLUCOSE, URINE (UA) AUTO NEGATIVE (NEGATIVE); KETONE, URINE AUTO NEGATIVE (NEGATIVE); LEUKOCYTE ESTERASE, URINE AUTO NEGATIVE (NEGATIVE); NITRITE, URINE AUTO NEGATIVE (NEGATIVE); PROTEIN, URINE AUTO NEGATIVE (NEGATIVE); SPECIFIC GRAVITY URINE AUTO 1.002 (1.002-1.035); UROBILINOGEN, URINE AUTO 0.2 mg/dL (0.0-2.0)
[2020-12-29 17:38] LABS: BACTERIA, URINE AUTO NEGATIVE (NEGATIVE); RBC, URINE AUTO 0 /HPF (0-3); SQUAMOUS EPITHELIAL CELL UR AU 0 /HPF (0-6); WBC, URINE AUTO 1 /HPF (0-3)
[2020-12-29 17:43] LABS: HEMATOCRIT 39.1 % (36.0-47.0); HEMOGLOBIN 12.8 g/dl (12.0-15.5); MEAN CORPUSCULAR HEMOGLOBIN 28.6 pg (27.0-33.0); MEAN CORPUSCULAR HGB CONC 32.7 g/dl (32.0-36.5); MEAN CORPUSCULAR VOLUME 87.3 fl (80.0-96.0); PLATELET COUNT, AUTOMATED 197 10^3/uL (150-450); RED BLOOD COUNT 4.48 10^6/uL (4.00-5.40); WHITE BLOOD COUNT 5.4 10^3/uL (4.0-10.0)
[2020-12-29 18:02] LABS: PROTHROMBIN TIME 13.6 SECONDS (12.7-14.5)
[2020-12-29 18:05] LABS: BLOOD UREA NITROGEN 20 MG/DL (7-18); CALCIUM LEVEL 8.9 MG/DL (8.5-10.1); CARBON DIOXIDE LEVEL 27 MEQ/L (21-32); CHLORIDE LEVEL 107 MEQ/L (98-107); CREATININE FOR GFR 1.16 MG/DL (0.55-1.30); GLOMERULAR FILTRATION RATE 57.6 (>60); GLUCOSE, FASTING 88 MG/DL (70-100); HCG, SERUM QUALITATIVE NEGATIVE (NEGATIVE); POTASSIUM SERUM 4.3 MEQ/L (3.5-5.1); SODIUM LEVEL 141 MEQ/L (136-145)
== END ==
LOC: M PLALAB 15:11
PROVIDERS: ATTEND Nurse Practitioner Women's Health
DX: Z01.818 Encounter for other preprocedural examination (principal); N13.2 Hydronephrosis with renal and ureteral calculous obstruction

== ENCOUNTER → 2021-01-01 | Outpatient (REF) | LOC: M EMP 09:45 | PROVIDERS: ATTEND Family Medicine | DX: Z20.828 Contact with and (suspected) exposure to other viral communicable diseases (principal); Z11.59 Encounter for screening for other viral diseases ==

== ENCOUNTER → 2021-01-15 | Outpatient (REF) | payer BC | LOC: M LAB REF 17:06 | PROVIDERS: ATTEND Physician Assistant | DX: N20.1 Calculus of ureter (principal) ==

== ENCOUNTER → 2021-01-26 | Outpatient (CLI) | payer BC ==
--- NOTE | 2021-01-26 16:15 | REP ---
INDICATION: HYDRONEPHROSIS WITH RENAL AND URETERAL CALCULOUS OBSTRUCTION. COMPARISON: CT 12/23/2020. TECHNIQUE: Two AP views abdomen and pelvis. FINDINGS: The bowel gas pattern is normal. No dilated bowel loops are seen. Scattered tiny phleboliths are seen in the inferior pelvis. There is no other radiographic evidence of abnormal calcifications in the abdomen or pelvis. IMPRESSION: Multiple tiny phleboliths in the inferior pelvis. No other significant abnormality. <Electronically signed by Faheem Prescott > 01/26/21 [id number]
== END ==
LOC: M RAD 15:42
PROVIDERS: ATTEND Urology
DX: N13.2 Hydronephrosis with renal and ureteral calculous obstruction (principal)

== ENCOUNTER → 2021-02-08 | Outpatient (CLI) | payer BC ==
--- NOTE | 2021-02-08 16:53 | REP ---
INDICATION: HYDRONEPHROSIS, HX STONE, HX HTN. COMPARISON: None. TECHNIQUE: Real-time sonographic evaluation of the kidneys with Doppler FINDINGS: Multiple ultrasonographic images of the right kidney show the right kidney to measure 10.9 x 5.4 x 5.2 cm. The renal cortical echotexture is unremarkable. There are no masses. There is good corticomedullary differentiation. There is no hydronephrosis. There are no perinephric fluid collections. Multiple ultrasonographic images of the left kidney show the left kidney to measure 11.4 x 4.7 x 5.8 cm. The renal cortical echotexture is unremarkable. There are no masses. There is good corticomedullary differentiation. There is no hydronephrosis. There are no perinephric fluid collections. Doppler of the urinary bladder UV junction shows uro jet phenomena bilaterally. IMPRESSION: Unremarkable renal ultrasonography. <Electronically signed by Anam Romano > 02/08/21 [id number]
== END ==
LOC: M RAD 14:05
PROVIDERS: ATTEND Physician Assistant
DX: N13.30 Unspecified hydronephrosis (principal)

== ENCOUNTER → 2021-04-05 | Outpatient (CLI) | payer BC, OTHER ==
[~2021-04-05] MED LIST changes: +BACT800T5 PO; +IRBE75TA4 PO; +OXYB5TAB10 PO; +OXYC1TAB23 PO; +PYRI1TAB5 PO
== END ==
LOC: M LABSMTC 10:15
PROVIDERS: ATTEND Anesthesiology
DX: Z01.812 Encounter for preprocedural laboratory examination (principal); Z20.822 Contact with and (suspected) exposure to COVID-19

== ENCOUNTER → 2021-04-05 | Outpatient (CLI) | payer BC, OTHER ==
[2021-04-05 11:04] LABS: HEMOGLOBIN 13.6 g/dl (12.0-15.5); MEAN CORPUSCULAR HEMOGLOBIN 28.7 pg (27.0-33.0); MEAN CORPUSCULAR HGB CONC 32.4 g/dl (32.0-36.5); MEAN CORPUSCULAR VOLUME 88.6 fl (80.0-96.0); PLATELET COUNT, AUTOMATED 271 10^3/uL (150-450); RED BLOOD COUNT 4.74 10^6/uL (4.00-5.40); WHITE BLOOD COUNT 6.7 10^3/uL (4.0-10.0)
[2021-04-05 11:29] LABS: ALBUMIN 3.9 GM/DL (3.2-5.2); ALT/SGPT 24 U/L (12-78); BILIRUBIN,TOTAL 0.3 MG/DL (0.2-1.0); BLOOD UREA NITROGEN 16 MG/DL (7-18); CARBON DIOXIDE LEVEL 31 MEQ/L (21-32); CHLORIDE LEVEL 108 MEQ/L (98-107); CREATININE FOR GFR 0.99 MG/DL (0.55-1.30); GLOMERULAR FILTRATION RATE > 60.0 (>60); GLUCOSE, FASTING 100 MG/DL (70-100); POTASSIUM SERUM 3.6 MEQ/L (3.5-5.1); SODIUM LEVEL 143 MEQ/L (136-145)
--- NOTE | 2021-04-05 11:29 | REP ---
INDICATION: CALCULUS OF URETER COMPARISON: 03/24/2020 TECHNIQUE: PA and lateral. FINDINGS: The mediastinum and cardiac silhouette are normal. The lung villegas are clear and without acute consolidation, effusion, or pneumothorax. The skeletal structures are intact and normal. IMPRESSION: No acute cardiopulmonary process. <Electronically signed by Jacob Jimenez > 04/05/21 [id number]
--- NOTE | 2021-04-07 11:34 | ECGEPIP ---
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
== END ==
LOC: M EKG 10:35
PROVIDERS: ATTEND Urology
DX: N20.1 Calculus of ureter (principal)

== ENCOUNTER 2021-04-09 07:55 | Day surgery (SDC) | payer BC, OTHER ==
[~2021-04-09] VITALS: Ht 170.2 cm; Wt 112.5 kg
[~2021-04-09 07:55] MED LIST changes: -BACT800T5 PO; +CIPROFLOXACIN 400 MG in IV 1 EA IV ONE; +LIDOCAINE 1% MDV 20ML VIAL SQ PRN; +LR 1,000 ML IV ONE; -OXYB5TAB10 PO; -PYRI1TAB5 PO
[2021-04-09] MEDS ORDERED: MIDAZOLAM INJ 2MG/2ML VIAL (J2250 PER 1MG) As Ordered ONE (08:40)
[2021-04-09] MEDS ORDERED: ONDANSETRON 4MG/2ML VIAL As Ordered ONE (08:40)
[2021-04-09] MEDS ORDERED: propofoL 200 MG/20 ML VIAL As Ordered ONE (08:40)
[2021-04-09] MEDS ORDERED: fentaNYL 100 MCG/2 ML INJECTION (J3010) As Ordered ONE (08:40)
[2021-04-09] MEDS ORDERED: LIDOCAINE 2% 100MG/5ML SDV (FOR ANES.) As Ordered ONE (08:40)
[2021-04-09] MEDS ORDERED: dexameTHASONE 4 MG/ML 1ML VIAL (J1100 PER 1MG) As Ordered ONE (08:40)
[2021-04-09] MEDS ORDERED: CONRAY-60 60% 50ML VIAL (Q9961) As Ordered ONE (09:21)
--- NOTE | 2021-04-09 09:38 | ROOPDOC ---
[facility] Report Of Operation Report of Operation DATE OF PROCEDURE: 04/09/21 PREPROCEDURE DIAGNOSES: [left ureteral stone]. POSTPROCEDURE DIAGNOSES: [Same]. PROCEDURE PERFORMED: [cysto, fluoro, rig uscope, laser litho, basket stone extraction, stent placement (LEFT SIDE)]. SURGEON: [Basim Blank MD [employer] BLASTING: [none], MD ANESTHESIA: [general]. ESTIMATED BLOOD LOSS: Approximately [1] mL. COMPLICATIONS: [None]. REMARKS: [30yo wf with left ureteral stone on imaging. Still has pain. Last had pain yesterday. Surgery arranged. Risks discussed including infection, pain, bleeding, scarring, injury to gu tract, failure of surgery, need for more surgery, no stone, risks of anesthesia and others. No guarantees given.]. FINDINGS: SPECIMENS REMOVED: [Stone fragment] PROCEDURE NOTE: . DESCRIPTION OF PROCEDURE: [I met with the patient in the preop area and again discussed surgery. She wished to proceed. Patient brought to the OR room. General anesthesia secured. Dorsolithotomy position. Well-padded. Prepped and draped in usual sterile fashion. Timeout performed. Surgery done under coverage of IV Cipro. Rigid cystoscopy performed. No stone in the bladder. Left ureteral orifice identified. A wire was passed up the ureter as seen using fluoroscopy. Resistance was met 1 to 2 cm above the UO. Fluoroscopy demonstrated a stone. With a bit of manipulation the wire was passed beyond the stone. The wire was secured to the drapes. Rigid ureteroscopy was performed. The stone was encountered. Laser lithotripsy was performed. The stone was fragmented into many pieces. With a stone basket, a fragment was retrieved and handed off. The basket was used to remove all the larger fragments. I passed the ureteroscope to just about the UPJ. No other stone was found. Once satisfied, a 6 [place] stent was placed using the Seldinger technique. The bladder was emptied at the end. Patient tolerated everything well left the room in satisfactory condition. Home today with oxybutynin, Pyridium, Bactrim and pain medication. I put a call out to a family member though no one answered.]. DAVID BLANK MD Apr 09, 2021 09:38
[2021-04-09] MEDS ORDERED: ACETAMINOPHEN 1000MG 100ML IV BTL (OFIRMEV) (J0131 PER 10MG) As Ordered ONE (10:10)
[2021-04-09] MEDS ORDERED: METOCLOPRAMIDE INJ 10MG/2ML VIAL (J2765 PER 1) As Ordered ONE (10:19)
[2021-04-09] MEDS ORDERED: BACT800T5 PO (10:25)
[2021-04-09] MEDS ORDERED: OXYB5TAB10 PO (10:25)
[2021-04-09] MEDS ORDERED: PYRI1TAB5 PO (10:25)
[2021-04-09] MEDS ORDERED: OXYC1TAB23 PO (10:25)
--- NOTE | 2021-04-09 10:27 | REP ---
INDICATION: LEFT STENT PLACEMENT. COMPARISON: None. TECHNIQUE: Single KUB obtained during left-sided double pigtail stent placement. 10 seconds of fluoroscopy time was provided for the exam. FINDINGS: The proximal portion of the stent is in the region of the renal pelvis and the distal portion the statin is in the region of the urinary bladder on the left. IMPRESSION: As above. <Electronically signed by Anam Romano > 04/09/21 1502
[2021-04-09] MEDS ORDERED: oxyCODONE 5MG TAB PO PRN (11:10)
[2021-04-09] MEDS ORDERED: ONDANSETRON 4MG/2ML VIAL IV PRN (11:10)
[2021-04-09] MEDS ORDERED: LR 1,000 ML IV SCH ×2 (11:10)
[2021-04-09] MEDS ORDERED: fentaNYL 100 MCG/2 ML INJECTION (J3010) IV PRN (11:10)
[2021-04-09 11:30] VITALS: BP 137/85
[2021-04-16 15:07] LABS: CA Oxalate Dihy 50 % (.); Ca Ox Monohydrate 20 % (.); Size 3x2 mm (.)
== END 2021-04-09 11:55 | disposition home or self-care (01) ==
LOC: M SDC 07:55
PROVIDERS: ATTEND Urology
DX: N20.1 Calculus of ureter (principal); I10 Essential (primary) hypertension; K21.9 Gastro-esophageal reflux disease without esophagitis; J45.909 Unspecified asthma, uncomplicated; Z86.16 Personal history of COVID-19; Z79.899 Other long term (current) drug therapy
CPT/HCPCS: 52356; 74420; 81025; 82365; 88300; C1769; C2617; J0131; J1100; J2250; J2405; J2765; J3010; Q9961

== ENCOUNTER → 2021-06-18 | Outpatient (REF) ==
[~2021-06-18] MED LIST changes: +BACT800T5 PO; -CIPROFLOXACIN 400 MG in IV 1 EA IV ONE; -LIDOCAINE 1% MDV 20ML VIAL SQ PRN; -LR 1,000 ML IV ONE; +OXYB5TAB10 PO; +PYRI1TAB5 PO
== END ==
LOC: M LABSMTC 09:29
PROVIDERS: ATTEND Family Medicine
DX: Z20.822 Contact with and (suspected) exposure to COVID-19 (principal)

== ENCOUNTER → 2021-08-15 | Outpatient (REF) | LOC: M LABSMTC 10:12 | PROVIDERS: ATTEND Family Medicine | DX: Z11.52 Encounter for screening for COVID-19 (principal); Z20.822 Contact with and (suspected) exposure to COVID-19 ==

== ENCOUNTER → 2021-12-06 | Outpatient (REF) | LOC: M LABSMTC 11:41 | PROVIDERS: ATTEND Family Medicine | DX: Z20.822 Contact with and (suspected) exposure to COVID-19 (principal); Z11.52 Encounter for screening for COVID-19 ==

== ENCOUNTER → 2022-01-16 | Outpatient (REF) | LOC: M LABSMTC 11:49 | PROVIDERS: ATTEND Family Medicine | DX: Z20.822 Contact with and (suspected) exposure to COVID-19 (principal) ==

== ENCOUNTER → 2022-02-18 | Outpatient (REF) ==
[2022-02-18 14:39] LABS: RSV AMPLIFICATION NEGATIVE (NEGATIVE)
== END ==
LOC: M LABSMTC 10:21
PROVIDERS: ATTEND Family Medicine
DX: Z11.52 Encounter for screening for COVID-19 (principal)

== ENCOUNTER → 2022-11-21 | Outpatient (CLI) | payer BC | LOC: M RAD 09:01 | PROVIDERS: ATTEND Family Medicine | DX: M79.671 Pain in right foot (principal); M67.472 Ganglion, left ankle and foot ==

== ENCOUNTER → 2022-11-21 | Outpatient (CLI) | payer BC ==
[2022-11-21 10:43] LABS: BASO % 0.4 % (0.0-1.0); EOS # 0.1 10^3/uL (0.0-0.5); EOS % 1.4 % (0.0-3.0); HEMATOCRIT 42.4 % (36.0-47.0); HEMOGLOBIN 13.9 g/dl (12.0-15.5); LYMPH # 1.2 10^3/uL (1.5-5.0); LYMPH % 25.2 % (24.0-44.0); MEAN CORPUSCULAR HEMOGLOBIN 28.8 pg (27.0-33.0); MEAN CORPUSCULAR HGB CONC 32.8 g/dl (32.0-36.5); MEAN CORPUSCULAR VOLUME 87.8 fl (80.0-96.0); MONO # 0.3 10^3/uL (0.0-0.8); MONO % 5.4 % (2.0-8.0); NEUTROPHILS # 3.3 10^3/uL (1.5-8.5); NEUTROPHILS % 67.2 % (36.0-66.0); PLATELET COUNT, AUTOMATED 238 10^3/uL (150-450); RED BLOOD COUNT 4.83 10^6/uL (4.00-5.40); WHITE BLOOD COUNT 4.9 10^3/uL (4.0-10.0)
[2022-11-21 10:59] LABS: HEMOGLOBIN A1c 5.6 % (4.0-6.0)
[2022-11-21 11:09] LABS: ALBUMIN 3.8 G/DL (3.2-5.2); ALKALINE PHOSPHATASE 71 U/L (46-116); ALT/SGPT 19 U/L (7.0-40); AST/SGOT 14 U/L (<34); BILIRUBIN,TOTAL 0.5 MG/DL (0.3-1.2); BLOOD UREA NITROGEN 15 MG/DL (9-23); CARBON DIOXIDE LEVEL 31 MMOL/L (20-31); CHLORIDE LEVEL 105 MMOL/L (98-107); CHOLESTEROL LEVEL 180 MG/DL (<200); CHOLESTEROL RISK RATIO 3.31 (<5); CREATININE FOR GFR 0.68 MG/DL (0.55-1.30); FREE T4 1.15 NG/DL (0.89-1.76); GLOMERULAR FILTRATION RATE > 60.0 (>60); GLUCOSE, FASTING 86 MG/DL (60-100); HDL CHOLESTEROL 54.3 MG/DL (>40); LDL CHOLESTEROL 108.5 MG/DL (<100); NON-HDL-C 125.7 MG/DL; POTASSIUM SERUM 4.2 MMOL/L (3.5-5.1); SODIUM LEVEL 141 MMOL/L (136-145); THYROID STIMULATING HORMONE 0.748 uIU/ML (0.55-4.78); TOTAL 25(OH) VITAMIN D 28.7 NG/ML (20.0-100.0); TOTAL PROTEIN 6.8 G/DL (5.7-8.2); TRIGLYCERIDES LEVEL 86 MG/DL (<150)
== END ==
LOC: M LAB 08:58
PROVIDERS: ATTEND Physician Assistant
DX: Z13.29 Encounter for screening for other suspected endocrine disorder (principal); Z13.220 Encounter for screening for lipoid disorders

== ENCOUNTER → 2022-12-05 | Outpatient (REF) | LOC: M EMP 16:11 | PROVIDERS: ATTEND Family Medicine | DX: Z11.52 Encounter for screening for COVID-19 (principal) ==

== ENCOUNTER → 2023-01-02 | Outpatient (REF) | LOC: M EMP 08:45 | PROVIDERS: ATTEND Family Medicine | DX: Z11.52 Encounter for screening for COVID-19 (principal) ==

== ENCOUNTER → 2023-03-21 | Outpatient (REF) ==
[~2023-03-21] MED LIST changes: -OXYB5TAB10 PO; +OXYB5TAB11 PO
== END ==
LOC: M EMP 13:43
PROVIDERS: ATTEND Family Medicine
DX: Z11.52 Encounter for screening for COVID-19 (principal)

== ENCOUNTER 2023-04-03 12:56 | Outpatient (RCR) | payer BC | END 2023-04-13 | LOC: M PT 12:56 | PROVIDERS: ATTEND Physician Assistant | DX: M25.551 Pain in right hip (principal); M54.50 Low back pain, unspecified ==

== ENCOUNTER → 2023-05-14 | Outpatient (RCR) | payer BC ==
[~2023-05-14] MED LIST changes: +IRBE75TA11 PO; -IRBE75TA4 PO
== END ==
LOC: M PT 04-16 12:42
PROVIDERS: ATTEND Physician Assistant
DX: M25.551 Pain in right hip (principal)

== ENCOUNTER → 2023-06-13 | Outpatient (REF) ==
[~2023-06-13] MED LIST changes: -OXYB5TAB11 PO; +OXYB5TAB14 PO
== END ==
LOC: M EMP 08:46
PROVIDERS: ATTEND Family Medicine
DX: Z01.89 Encounter for other specified special examinations (principal)

== ENCOUNTER → 2023-06-13 | Outpatient (REF) | LOC: M EMP 08:44 | PROVIDERS: ATTEND Family Medicine | DX: Z11.52 Encounter for screening for COVID-19 (principal) ==

== ENCOUNTER → 2023-08-26 | Outpatient (REF) | LOC: M EMP 11:29 | PROVIDERS: ATTEND Family Medicine | DX: Z20.822 Contact with and (suspected) exposure to COVID-19 (principal) ==

== ENCOUNTER → 2023-09-02 | Outpatient (CLI) | payer BC ==
[2023-09-02 18:24] LABS: HIV 1&2 SCREEN NEGATIVE (NEGATIVE)
[2023-09-02 18:32] LABS: HEPATITIS C VIRUS ABY INDEX < 0.02 INDEX (<0.8)
[2023-09-02 20:03] LABS: Trichomonas vaginalis (AMP) NOT DETECTED (NEGATIVE)
[2023-09-02 20:27] LABS: GC DNA AMPLIFICATION NEGATIVE (NEGATIVE)
== END ==
LOC: M LAB 16:35
PROVIDERS: ATTEND Physician Assistant
DX: Z11.3 Encounter for screening for infections with a predominantly sexual mode of transmission (principal); Z11.4 Encounter for screening for human immunodeficiency virus [HIV]

== ENCOUNTER → 2023-09-25 | Outpatient (CLI) | payer BC ==
[~2023-09-25] MED LIST changes: +ONDA-282 PO; -ONDA4TAB6 PO
== END ==
LOC: M RAD 12:17
PROVIDERS: ATTEND Family Medicine
DX: J20.9 Acute bronchitis, unspecified (principal)

== ENCOUNTER → 2024-01-14 | Outpatient (CLI) | payer BC ==
[2024-01-14 11:21] LABS: BASO % 0.3 % (0.0-1.0); EOS # 0.1 10^3/uL (0.0-0.5); HEMATOCRIT 44.4 % (36.0-47.0); HEMOGLOBIN 14.7 g/dl (12.0-15.5); LYMPH # 1.3 10^3/uL (1.5-5.0); MEAN CORPUSCULAR HEMOGLOBIN 29.2 pg (27.0-33.0); MEAN CORPUSCULAR HGB CONC 33.1 g/dl (32.0-36.5); MEAN CORPUSCULAR VOLUME 88.1 fl (80.0-96.0); MONO # 0.2 10^3/uL (0.0-0.8); MONO % 4.1 % (2.0-8.0); NEUTROPHILS # 4.2 10^3/uL (1.5-8.5); NEUTROPHILS % 72.4 % (36.0-66.0); PLATELET COUNT, AUTOMATED 246 10^3/uL (150-450); RED BLOOD COUNT 5.04 10^6/uL (4.00-5.40); WHITE BLOOD COUNT 5.8 10^3/uL (4.0-10.0)
[2024-01-14 11:46] LABS: ALBUMIN 3.7 G/DL (3.2-5.2); ALKALINE PHOSPHATASE 71 U/L (46-116); ALT/SGPT 22 U/L (7.0-40); AST/SGOT 12 U/L (<34); BILIRUBIN,TOTAL 0.4 MG/DL (0.3-1.2); BLOOD UREA NITROGEN 16 MG/DL (9-23); CALCIUM LEVEL 9.1 MG/DL (8.5-10.1); CARBON DIOXIDE LEVEL 29 MMOL/L (20-31); CHLORIDE LEVEL 108 MMOL/L (98-107); CHOLESTEROL LEVEL 177 MG/DL (<200); CHOLESTEROL RISK RATIO 3.56 (<5); GLOMERULAR FILTRATION RATE > 60.0 (>60); GLUCOSE, FASTING 101 MG/DL (60-100); HDL CHOLESTEROL 49.7 MG/DL (>40); LDL CHOLESTEROL 97.3 MG/DL (<100); NON-HDL-C 127.3 MG/DL; POTASSIUM SERUM 4.4 MMOL/L (3.5-5.1); SODIUM LEVEL 139 MMOL/L (136-145); TOTAL PROTEIN 6.7 G/DL (5.7-8.2); TRIGLYCERIDES LEVEL 150 MG/DL (<150)
[2024-01-14 11:48] LABS: THYROID STIMULATING HORMONE 0.747 uIU/ML (0.55-4.78)
[2024-01-14 12:03] LABS: HEMOGLOBIN A1c 5.1 % (4.0-6.0)
== END ==
LOC: M LAB 09:57
PROVIDERS: ATTEND Physician Assistant
DX: Z13.220 Encounter for screening for lipoid disorders (principal); Z13.29 Encounter for screening for other suspected endocrine disorder

== ENCOUNTER → 2024-02-29 | Outpatient (REF) | payer BC ==
[~2024-02-29] MED LIST changes: +CALC500T68 PO; +L-NO1TBD7; +OMEP-173 PO; +THERTAB52 PO
== END ==
LOC: M LAB REF 17:15
PROVIDERS: ATTEND Physician Assistant
DX: J02.9 Acute pharyngitis, unspecified (principal)

== ENCOUNTER 2024-03-05 06:26 | Day surgery (SDC) | payer BC ==
[~2024-03-05] VITALS: Ht 167.6 cm; Wt 107.2 kg
[2024-03-05] MEDS ORDERED: LIDOCAINE 2% 100MG/5ML SDV (FOR ANES.) As Ordered ONE (06:50)
[2024-03-05] MEDS ORDERED: propofoL 200 MG/20 ML VIAL As Ordered ONE (06:52)
[2024-03-05] MEDS ORDERED: fentaNYL 100 MCG/2 ML INJECTION As Ordered ONE (06:56)
[2024-03-05 07:56] VITALS: TEMP 97.2
[2024-03-05 08:10] VITALS: BP 113/71; O2SAT 94
== END 2024-03-05 08:14 | disposition home or self-care (01) ==
LOC: M OPP 06:26
PROVIDERS: ATTEND Surgery
DX: Z12.11 Encounter for screening for malignant neoplasm of colon (principal); K30 Functional dyspepsia; K21.9 Gastro-esophageal reflux disease without esophagitis; Z80.0 Family history of malignant neoplasm of digestive organs; I10 Essential (primary) hypertension; J45.909 Unspecified asthma, uncomplicated; Z79.899 Other long term (current) drug therapy
CPT/HCPCS: 43235; 45378; J3010

== ENCOUNTER → 2024-05-28 | Outpatient (REF) | LOC: M EMP 08:44 | PROVIDERS: ATTEND Family Medicine | DX: Z11.52 Encounter for screening for COVID-19 (principal) ==

== ENCOUNTER → 2024-11-08 | Outpatient (CLI) | payer BC ==
[~2024-11-08] MED LIST changes: -FLOM0.4C39 PO; +TAMS-18 PO
[2024-11-08 12:05] LABS: APPEARANCE, URINE CLOUDY (CLEAR); BACTERIA, URINE AUTO NEGATIVE (NEGATIVE); BILIRUBIN, URINE AUTO NEGATIVE (NEGATIVE); BLOOD, URINE BLOOD NEGATIVE (NEGATIVE); GLUCOSE, URINE (UA) AUTO NEGATIVE (NEGATIVE); KETONE, URINE AUTO NEGATIVE (NEGATIVE); LEUKOCYTE ESTERASE, URINE AUTO TRACE (NEGATIVE); MUCUS, URINE LARGE (NEGATIVE); NITRITE, URINE AUTO NEGATIVE (NEGATIVE); PROTEIN, URINE AUTO NEGATIVE (NEGATIVE); RBC, URINE AUTO 1 /HPF (0-3); SPECIFIC GRAVITY URINE AUTO 1.021 (1.002-1.035); SQUAMOUS EPITHELIAL CELL UR AU 8 /HPF (0-6); UROBILINOGEN, URINE AUTO 0.2 mg/dL (0.0-2.0); WBC, URINE AUTO 4 /HPF (0-3)
[2024-11-08 12:58] LABS: HIV 1&2 SCREEN NEGATIVE (NEGATIVE)
[2024-11-08 13:38] LABS: Trichomonas vaginalis (AMP) NOT DETECTED (NEGATIVE)
[2024-11-08 14:02] LABS: GC DNA AMPLIFICATION NEGATIVE (NEGATIVE)
== END ==
LOC: M LAB 11:09
DX: Z20.2 Contact with and (suspected) exposure to infections with a predominantly sexual mode of transmission (principal); N39.0 Urinary tract infection, site not specified; N89.8 Other specified noninflammatory disorders of vagina

== ENCOUNTER → 2024-11-17 | Outpatient (REF) | payer BC | LOC: M LAB REF 17:15 | PROVIDERS: ATTEND Physician Assistant | DX: J02.9 Acute pharyngitis, unspecified (principal) ==